=== PATIENT | female | born 1955 | race Caucasian/White ===

== ENCOUNTER → 2017-04-15 | Outpatient (CLI) | payer BC | LOC: COL.RAD 15:36 | DX: S42.212A Unspecified displaced fracture of surgical neck of left humerus, initial encounter for closed fracture (principal); M25.012 Hemarthrosis, left shoulder ==

== ENCOUNTER → 2019-05-27 | Outpatient (CLI) | payer OTHER | LOC: MC.RAD 16:30 | DX: Z12.31 Encounter for screening mammogram for malignant neoplasm of breast (principal) ==

== ENCOUNTER → 2020-06-12 | Outpatient (CLI) | payer OTHER | LOC: MC.RAD 07:00 | DX: Z12.31 Encounter for screening mammogram for malignant neoplasm of breast (principal) ==

== ENCOUNTER 2024-01-08 07:17 | Day surgery (SDC) | payer MEDICARE, OTHER ==
[~2024-01-08] VITALS: Ht 149.9 cm; Wt 90.6 kg
[2024-01-08] VITALS (15 sets, daily range): BP systolic 91–140; BP diastolic 50–97; PULSE 65–83; TEMP 97–98.3
[~2024-01-08 07:17] MED LIST: BETAPACE 80MG80 MG PO; COZAAR 50MG50 MG/TAB PO; ELIQUIS 5MG PO; LEXAPRO 10MG10 MG PO; MULTAQ400 MG PO; TYLENOL 500MG500 MG PO
[2024-01-08] MEDS ORDERED: ceFAZolin 2 G in Water For Injection,Sterile 20 ML IV SCH (08:00)
[2024-01-08] MEDS ORDERED: 1/2 NS 1,000 ML IV SCH (08:00)
[2024-01-08 08:28] LABS: HEMATOCRIT 40.8 % (37.0-47.0); HEMOGLOBIN 14.2 g/dl (12.5-16.0); MEAN CELL VOLUME 96 fl (80.0-100.0); MEAN CORPUSCULAR HEMOGLOBIN 33 pg (27-31); MEAN CORPUSCULAR HGB CONC 35 g/dl (33.0-37.0); PLATELET COUNT 258 K/mm3 (130-400); RED BLOOD COUNT 4.26 M/mm3 (4.10-5.30); REDCELL DISTRIBUTION WIDTH-CV 13.3 % (11.5-14.5)
[2024-01-08 08:49] LABS: CREATININE, serum 0.74 mg/dL (0.57-1.11); POTASSIUM 4.1 mEq/L (3.5-4.5)
[2024-01-08] MEDS ORDERED: ELIQUIS 5MG PO (08:49)
[2024-01-08] MEDS ORDERED: BETAPACE 80MG80 MG PO (08:50)
[2024-01-08] MEDS ORDERED: [UNRECOGNIZED DRUG - OTHER] PO (08:52)
[2024-01-08] MEDS ORDERED: MULTIPLE VITAMI1 CAP PO (08:52)
[2024-01-08] MEDS ORDERED: VITAMIN D31000 I1 PO (08:53)
[2024-01-08] MEDS ORDERED: B-121000 MCG PO (08:53)
[2024-01-08] MEDS ORDERED: VITAMIN C500 MG PO (09:21)
--- NOTE | 2024-01-08 10:00 | NUR ---
Report received pt will go to room 305.
[2024-01-08] MEDS ORDERED: NS 1,000 ML IV.SOLN. IR SCH (10:54)
--- NOTE | 2024-01-08 10:54 | NUR ---
See Merge report for procedural sedation/notes
[2024-01-08] MEDS ORDERED: Iohexol 350 - 100 ML VIAL IV ONE (11:05)
[2024-01-08] MEDS ORDERED: Midazolam 2 MG/2 ML VIAL IV SCH (11:26)
[2024-01-08] MEDS ORDERED: fentaNYL 50 MCG/ML 2 ML VIAL IV SCH (11:26)
[2024-01-08] MEDS ORDERED: Temazepam 15 MG CAP PO PRN (12:00)
[2024-01-08] MEDS ORDERED: Docusate Sodium 100 MG CAP PO PRN (12:15)
[2024-01-08] MEDS ORDERED: Acetaminophen 500 MG TAB PO PRN (12:15)
--- NOTE | 2024-01-08 12:15 | NUR ---
Pt to Medical 310 - bedside handoff performed with KATLIN Menendez: vitals initiated and stable, incision site and dressing stable and assessed together, at bedside, call light in reach.
[2024-01-08] MEDS ORDERED: Cephalexin 500 MG CAP PO SCH (14:00)
--- NOTE | 2024-01-08 15:46 | NUR ---
DR. MIRANDA NOTIFIED OF PATIENT LOW BLOOD PRESSURE. NEW ORDERS WERE GIVEN. PATIENT DENIES NOT FEELING WELL ONLY SOME SLEEPINESS. CALL LIGHT WITHIN REACH. BED AT LOWEST POSITION. BED ALARM ON.
[2024-01-08] MEDS ORDERED: fentaNYL 50 MCG/ML 2 ML VIAL IV PRN (16:00)
[2024-01-08] MEDS ORDERED: traMADol 50 MG TAB PO PRN (16:00)
[2024-01-08] MEDS ORDERED: NS 500 ML IV ONE ×2 (16:45→17:15)
--- NOTE | 2024-01-08 20:30 | NUR ---
Initial shift assessment done- states having pain / to pacemaker site,, will give fentanyl as ordered, ice to incision site, Sling to left arm, Tele on- paced. Also has loop recorder site- gauze dry and intact. IV fluids of NS at 100cc/hr. Up to Bathroom with assist- steady on feet.
[2024-01-09 00:30] VITALS: BP_SYST 106
[2024-01-09 03:54] VITALS: BP 115/77; PULSE 68; TEMP 97.8
[2024-01-09 04:37] VITALS: BP_SYST 115
--- NOTE | 2024-01-09 06:00 | NUR ---
Did not sleep much during the night- B/P stable, has been having pain to pacemaker site, ice on at times, was given tramadol x2 this shift and fentanyl x1 this shift, pt states this morning though the pain is more controlled, up to bathroom, voiding without problems. dressing x2 dry and intact to chest.
[2024-01-09 06:38] LABS: BASO % 0.3 % (0.0-2.0); EOS # 0.1 K/mm3 (0.0-0.7); EOS % 0.9 % (0.0-4.0); GRAN # 5.3 K/mm3 (1.4-6.5); GRAN % 59.2 % (42.2-75.2); HEMATOCRIT 38.2 % (37.0-47.0); HEMOGLOBIN 13.2 g/dl (12.5-16.0); LYMPH # 2.7 K/mm3 (1.2-3.4); LYMPH % 29.5 % (20.0-51.0); MEAN CELL VOLUME 97 fl (80.0-100.0); MEAN CORPUSCULAR HEMOGLOBIN 33 pg (27-31); MEAN CORPUSCULAR HGB CONC 35 g/dl (33.0-37.0); MEAN PLATELET VOLUME 11.3 fl (7.4-10.4); MONO # 0.9 K/mm3 (0.1-0.6); MONO % 9.7 % (1.7-9.3); PLATELET COUNT 206 K/mm3 (130-400); RED BLOOD COUNT 3.95 M/mm3 (4.10-5.30); REDCELL DISTRIBUTION WIDTH-CV 13.6 % (11.5-14.5)
[2024-01-09 06:59] LABS: CALCIUM 8.3 mg/dL (8.4-10.2); CREATININE, serum 0.77 mg/dL (0.57-1.11); MAGNESIUM 1.7 mg/dL (1.6-2.6)
[2024-01-09 07:35] VITALS: BP 120/77; PULSE 74; TEMP 97.4
[2024-01-09 09:00] VITALS: BP_SYST 120
[2024-01-09] MEDS ORDERED: Cyanocobalamin (Vit B-12) 1,000 MCG TAB PO SCH (09:00)
[2024-01-09] MEDS ORDERED: Losartan 50 MG TAB PO SCH (09:00)
[2024-01-09] MEDS ORDERED: Multivitamin TAB PO SCH (09:00)
[2024-01-09] MEDS ORDERED: Ascorbic Acid 500 MG TAB PO SCH (09:00)
[2024-01-09] MEDS ORDERED: Cholecalciferol (Vit D3) 1000 Units TAB PO SCH (09:00)
--- NOTE | 2024-01-09 09:38 | NUR ---
Initial visit; Patient talked with Last Greaser about her recently installed pacemaker and how it's affecting her shoulder that she had surgery on. She is very pleasant and appears to be able to care for herself. She thanked Last Greaser for coming in.
--- NOTE | 2024-01-09 09:44 | NUR ---
PT RESTING IN BED. C/O PAIN TO LEFT SHOULDER. DRESSINGS TO LEFT CHEST CDI. CXR COMPLETE. AM MEDS GIVEN ORDERED. PT UP TO BR VOIDED AND RETURNED TO BED WITH DIELECTRIC TESTER. PT EATING AND DRINKING WITH NO REPORTS OF NAUSEA OR VOMITING. CARE PLAN REVIEWED, UPDATED AND CONTINUE TO FOLLOW.
[2024-01-09] MEDS ORDERED: CEPHALEXIN500 M1 PO (12:15)
[2024-01-09] MEDS ORDERED: CELEBREX 200MG200 MG PO (12:17)
[2024-01-09 13:09] VITALS: BP 125/82; PULSE 81; TEMP 98
--- NOTE | 2024-01-09 13:46 | NUR ---
Net Applications Developer met with patient to discuss discharge planning. Patient lives in [place] with her , Gregory (ph#[phone]) and sees Vannesa Madison NP for primary care. Patient gets her medications from [facility] and is able to afford them. Patient did remark that her Eloquis is expensive, however she is a part of a discount program that helps. Patient has a walker and cane available at home as she previously had a pelvic fracture, however has not recently needed them. Patient reported independence with ADLS, including driving. Patient advised her , Gregory is DPOA-HC. Patient plans to return home at time of discharge. Discharge Plan: Home
--- NOTE | 2024-01-09 14:05 | NUR ---
DISCHARGE INSTRUCTIONS REVIEWED WITH PT. PT VERBALIZED UNDERSTANDING. PT LEFT UNIT PER WHEEL CHAIR WITH STAFF.
== END 2024-01-09 13:15 | disposition home or self-care (01) ==
LOC: COL.CAR 07:17 → MEDICAL 12:26 → COL.CAR 01-09 13:15
PROVIDERS: Internal Medicine Cardiovascular Disease
DX: I49.5 Sick sinus syndrome (principal); Z45.09 Encounter for adjustment and management of other cardiac device; Z45.018 Encounter for adjustment and management of other part of cardiac pacemaker
CPT/HCPCS: OP; C1785; C1898; J0665-JZ; J0688; J0690; J2250; J3010; J7030; J7040; Q9967